=== PATIENT | female | born 1950 | race Caucasian/White ===

== ENCOUNTER 2017-10-01 19:06 | Emergency (ER) | payer OTHER, MEDICAID ==
[~2017-10-01] VITALS: Ht 157.5 cm; Wt 76.7 kg
[~2017-10-01 19:06] MED LIST: ENAL20TA19 PO; FAMO-90 PO
[2017-10-01 19:22] VITALS: BP 153/80
--- NOTE | 2017-10-01 19:22 | NUR ---
PT RETURNED TO LOBBY
--- NOTE | 2017-10-01 19:35 | NUR ---
MADE AWARE PT IN LOBBY
--- NOTE | 2017-10-01 19:53 | NUR ---
Blood for labwork drawn from rt arm in chair. Patient tolerated well.
--- NOTE | 2017-10-01 19:58 | NUR ---
PT TAKEN TO XRAY VIA WC
--- NOTE | 2017-10-01 20:05 | NUR ---
EKG DONE, PT RETURNED TO LOBBY
[2017-10-01 20:13] LABS: BASOPHILS # (AUTO) 0.3 K/uL (0.00-0.22); EOSINOPHILS # (AUTO) 0.3 K/uL (0-0.4); HEMOGLOBIN 12.8 g/dL (12.0-16.0); LYMPHOCYTES # (AUTO) 1.4 K/uL (2.5-16.5); MEAN CORPUSCULAR HEMOGLOBIN 28 pg (27-31); MEAN CORPUSCULAR HGB CONC 33 g/dL (33-37); MEAN CORPUSCULAR VOLUME 84 fL (80-94); MONOCYTES # (AUTO) 0.5 K/uL (0.8-1.0); NEUTROPHILS # (AUTO) 3.7 K/uL (1.8-7.7); PLATELET COUNT (AUTO) 178 K/uL (140-450); RED BLOOD CELL COUNT(AUTO) 4.65 MIL/uL (4.20-5.40); RED CELL DISTRIBUTION WIDTH 14.2 % (11.6-13.7); WHITE BLOOD COUNT (AUTO) 6.2 K/uL (4.8-10.8)
--- NOTE | 2017-10-01 20:20 | NUR ---
PT AMBULATED TO ER BED 03 AT 2020
[2017-10-01 20:26] LABS: ANION GAP 13.2 (8-16); CARBON DIOXIDE 28.4 mmol/L (21-32); CREATININE 0.9 mg/dL (0.6-1.3); POTASSIUM 3.6 mmol/L (3.5-5.1)
[2017-10-01] MEDS ORDERED: LORazepam 1 MG TAB PO ONE (20:30)
[2017-10-01 20:31] LABS: ALBUMIN 3.5 g/dL (3.4-5.0); TOTAL BILIRUBIN 0.3 mg/dL (0.0-1.0)
--- NOTE | 2017-10-01 20:53 | NUR ---
66Y/F PRESENTS TO ER C/O NERVOUSNESS. HX GERD, HTN, HIGH CHOLESTEROL. NKA. PT STATES SHE HAS BEEN FEELING NERVOUS SINCE YESTERDAY. PT STATES SHE USUSALLY FLIES TO [place] AROUND THIS TIME OF YEAR AND HAS "PROBLEMS". PT STATES SHE HAS NO PAIN, DENIES N/V/D. AA&OX4.
[2017-10-01 21:45] VITALS: BP 153/88
--- NOTE | 2017-10-01 21:47 | NUR ---
Patient discharged with v/s stable. Written and verbal after care instructions given and explained. Patient alert, oriented and verbalized understanding of instructions. Ambulatory with steady gait. All questions addressed prior to discharge. ID band removed. Patient advised to follow up with PMD. Rx of XANAX 0.5MG given. Patient educated on indication of medication including possible reaction and side effects. Opportunity to ask questions provided and answered.
== END 2017-10-01 21:45 | disposition home or self-care (01) ==
LOC: MED 19:06
DX: F41.9 Anxiety disorder, unspecified (principal); I10 Essential (primary) hypertension; K21.9 Gastro-esophageal reflux disease without esophagitis
CPT/HCPCS: 36415; 71010; 80053; 83880; 84484; 85025; 93005; 99285

== ENCOUNTER 2018-01-19 21:21 | Emergency (ER) | payer OTHER, MEDICAID ==
[~2018-01-19] VITALS: Ht 162.6 cm; Wt 77.3 kg
[2018-01-19 21:42] VITALS: BP 150/94
[2018-01-19 22:06] VITALS: BP 135/72
--- NOTE | 2018-01-19 22:06 | NUR ---
Patient discharged with v/s stable. Written and verbal after care instructions given and explained. Patient alert, oriented and verbalized understanding of instructions. Ambulatory with steady gait. All questions addressed prior to discharge. ID band removed. Patient advised to follow up with PMD. Rx of AMOXICILLIN 500MG AND FLONASE 50MCG given. Patient educated on indication of medication including possible reaction and side effects. Opportunity to ask questions provided and answered.
== END 2018-01-19 22:06 | disposition home or self-care (01) ==
LOC: MED 21:21
DX: H66.91 Otitis media, unspecified, right ear (principal); R09.81 Nasal congestion; R06.02 Shortness of breath; K21.9 Gastro-esophageal reflux disease without esophagitis; I10 Essential (primary) hypertension; Z79.899 Other long term (current) drug therapy
CPT/HCPCS: 99283

== ENCOUNTER 2018-08-27 09:57 | Emergency (ER) | payer OTHER, MEDICAID ==
[~2018-08-27] VITALS: Ht 157.5 cm; Wt 77.1 kg
[2018-08-27 10:03] VITALS: BP 162/84
[2018-08-27 12:35] VITALS: BP 133/64
== END 2018-08-27 12:33 | disposition home or self-care (01) ==
LOC: MED 09:57
DX: R42 Dizziness and giddiness (principal); K21.9 Gastro-esophageal reflux disease without esophagitis; I10 Essential (primary) hypertension; F41.9 Anxiety disorder, unspecified; Z79.899 Other long term (current) drug therapy
CPT/HCPCS: 82948; 93005; 99283

== ENCOUNTER 2019-01-25 14:55 | Emergency (ER) | payer OTHER, MEDICAID ==
[~2019-01-25] VITALS: Ht 157.5 cm; Wt 74.8 kg
[~2019-01-25 14:55] MED LIST changes: -ENAL20TA19 PO; +ENAL20TA99 PO
[2019-01-25 15:00] VITALS: BP 119/69
--- NOTE | 2019-01-25 15:56 | NUR ---
PT AMBULATED TO BED 03.
[2019-01-25] MEDS ORDERED: LORazepam 1 MG TAB PO ONE (17:10)
--- NOTE | 2019-01-25 17:19 | NUR ---
PATIENT REFUSED ATIVAN. PT STATES THAT SHE TAKES IT AT 2100 AND IS REQUESTING MED REFILL.
[2019-01-25 17:35] VITALS: BP 139/79
--- NOTE | 2019-01-25 17:35 | NUR ---
Patient discharged with v/s stable. Written and verbal after care instructions given and explained. Patient alert, oriented and verbalized understanding of instructions. Ambulatory with steady gait. All questions addressed prior to discharge. ID band removed. Patient advised to follow up with PMD. Rx of Vistaril given. Patient educated on indication of medication including possible reaction and side effects. Opportunity to ask questions provided and answered.
== END 2019-01-25 17:35 | disposition home or self-care (01) ==
LOC: MED 14:55
DX: F41.9 Anxiety disorder, unspecified (principal); K21.9 Gastro-esophageal reflux disease without esophagitis; I10 Essential (primary) hypertension; Z76.0 Encounter for issue of repeat prescription; Z79.899 Other long term (current) drug therapy
CPT/HCPCS: 99283

== ENCOUNTER 2021-06-25 13:20 | Emergency (ER) | payer OTHER, MEDICAID ==
[~2021-06-25] VITALS: Ht 157.5 cm; Wt 77.6 kg
[2021-06-25 13:32] VITALS: BP 135/64
[2021-06-25 14:30] LABS: BASOPHILS # (AUTO) 0.1 K/uL (0.00-0.22); EOSINOPHILS # (AUTO) 0.2 K/uL (0-0.4); HEMATOCRIT 41.3 % (36-48); HEMOGLOBIN 13.6 g/dL (12.0-16.0); LYMPHOCYTES # (AUTO) 1.5 K/uL (2.5-16.5); MEAN CORPUSCULAR HEMOGLOBIN 28 pg (27-31); MEAN CORPUSCULAR HGB CONC 33 g/dL (33-37); MONOCYTES # (AUTO) 0.6 K/uL (0.8-1.0); MONOCYTES % (AUTO) 9.6 % (1.7-9.3); NEUTROPHILS # (AUTO) 3.8 K/uL (1.8-7.7); NEUTROPHILS % (AUTO) 61.4 % (42.2-75.2); PLATELET COUNT (AUTO) 211 K/uL (140-450); RED BLOOD CELL COUNT(AUTO) 4.81 MIL/uL (4.20-5.40); RED CELL DISTRIBUTION WIDTH 15.7 % (11.6-13.7); WHITE BLOOD COUNT (AUTO) 6.1 K/uL (4.8-10.8)
[2021-06-25 14:49] LABS: ALBUMIN 3.6 g/dL (3.4-5.0); ANION GAP 9.6 (8-16); CARBON DIOXIDE 29.6 mmol/L (21-32); CREATININE 0.8 mg/dL (0.6-1.3); MAGNESIUM 2.1 mg/dL (1.8-2.4); POTASSIUM 4.2 mmol/L (3.5-5.1); TOTAL BILIRUBIN 0.4 mg/dL (0.0-1.0)
[2021-06-25 15:17] VITALS: BP 135/64
--- NOTE | 2021-06-25 15:17 | NUR ---
Patient discharged with v/s stable. Written and verbal after care instructions given and explained. Patient verbalized understanding. Ambulatory with to car. All questions addressed prior to discharge. Advised to follow up with PMD.
== END 2021-06-25 15:17 | disposition home or self-care (01) ==
LOC: MED 13:20
DX: I48.91 Unspecified atrial fibrillation (principal); R00.2 Palpitations; I10 Essential (primary) hypertension; F41.9 Anxiety disorder, unspecified
CPT/HCPCS: 36415; 71045; 80053; 83735; 85025; 93005; 99285

== ENCOUNTER 2024-08-11 09:52 | Emergency (ER) | payer MEDICARE, OTHER ==
[~2024-08-11] VITALS: Ht 152.4 cm; Wt 83.0 kg
[2024-08-11 10:05] VITALS: BP 116/40; PULSE 65; RESP 15; TEMP 98.6; O2SAT 98
[2024-08-11] MEDS: ACETAMINOPHEN 325 MG TAB PO ONE (10:32)
[2024-08-11 10:57] VITALS: BP 118/68; PULSE 82; RESP 20; TEMP 98.2; O2SAT 98
== END 2024-08-11 10:59 | disposition home or self-care (01) ==
LOC: MED 09:52
DX: S29.012A Strain of muscle and tendon of back wall of thorax, initial encounter (principal); K21.9 Gastro-esophageal reflux disease without esophagitis; I10 Essential (primary) hypertension; E78.5 Hyperlipidemia, unspecified; M19.90 Unspecified osteoarthritis, unspecified site; Z79.899 Other long term (current) drug therapy; Z98.890 Other specified postprocedural states; X50.0XXA Overexertion from strenuous movement or load, initial encounter; Y93.89 Activity, other specified; Y92.89 Other specified places as the place of occurrence of the external cause; Y99.8 Other external cause status
CPT/HCPCS: 99282